=== PATIENT | female | born 1965 | race Caucasian/White ===

== ENCOUNTER 2018-07-20 09:26 | Emergency (ER) | payer MEDICAID ==
[~2018-07-20] VITALS: Ht 165.1 cm; Wt 94.0 kg
[2018-07-20] MEDS ORDERED: methylPREDNISolone sod succ 125mg/2ml vial IV ONE (10:00)
[2018-07-20] MEDS ORDERED: CefTRIAXone 1000mg IM Kit (w/lidocaine diluent) IM ONE (10:40)
[2018-07-20] MEDS ORDERED: METH4TAB81 PO (11:29)
[2018-07-20] MEDS ORDERED: AMOX-580 PO (11:29)
[2018-07-20] MEDS ORDERED: AZIT250T83 PO (11:29)
[2018-07-20] MEDS ORDERED: ALBU8.5H8 IH (11:29)
[2018-07-20 12:01] VITALS: BP 119/59
== END 2018-07-20 12:24 | disposition home or self-care (01) ==
LOC: ER 09:27
DX: J44.1 Chronic obstructive pulmonary disease with (acute) exacerbation (principal); F17.200 Nicotine dependence, unspecified, uncomplicated
CPT/HCPCS: 71045; 96372; 96374; 99284; J0696; J2930; 93005